=== PATIENT | female | born 1935 | race Caucasian/White ===

== ENCOUNTER 2021-12-27 02:05 | Inpatient (IN) | payer OTHER ==
[~2021-12-27] VITALS: Ht 152.4 cm; Wt 45.4 kg
[2021-12-27 02:10] VITALS: BP 117/73
--- NOTE | 2021-12-27 02:18 | NUR ---
PT BIBA 209
[2021-12-27] MEDS ORDERED: MEROPENEM 1,000 MG in NACL 0.9% 50 ML IV ONE (02:30)
[2021-12-27] MEDS ORDERED: NACL 0.9% 1,000 ML IV ONE (02:30)
[2021-12-27] MEDS ORDERED: VANCOMYCIN 1,000 MG in DEXTROSE 5% 250 ML IV ONE (02:30)
[2021-12-27 02:47] LABS: BASOPHILS % (AUTO) 0.6 % (0.0-2.0); EOSINOPHILS # (AUTO) 0.1 K/uL (0-0.4); EOSINOPHILS % (AUTO) 1.8 % (0.0-4.0); HEMATOCRIT 41.4 % (36-48); HEMOGLOBIN 13.5 g/dL (12.0-16.0); LYMPHOCYTES # (AUTO) 0.9 K/uL (2.5-16.5); MEAN CORPUSCULAR HEMOGLOBIN 30 pg (27-31); MEAN CORPUSCULAR HGB CONC 33 g/dL (33-37); MEAN CORPUSCULAR VOLUME 92.9 fL (80-94); MONOCYTES # (AUTO) 0.2 K/uL (0.8-1.0); MONOCYTES % (AUTO) 3.6 % (1.7-9.3); NEUTROPHILS # (AUTO) 5.1 K/uL (1.8-7.7); PLATELET COUNT (AUTO) 182 K/uL (140-450); RED BLOOD CELL COUNT(AUTO) 4.46 MIL/uL (4.20-5.40); RED CELL DISTRIBUTION WIDTH 19.6 % (11.6-13.7); WHITE BLOOD COUNT (AUTO) 6.4 K/uL (4.8-10.8)
--- NOTE | 2021-12-27 02:57 | NUR ---
PT CAME IN WITH SOB AND NOSE BLEED MOSTLY FROM LEFT NARE. PT IS ON 8 L NON REBREATHER SATTING AT 97 %. ALERT AND ORIENTED X4, FOLLOW COMMAND UNSTEADY GAIT DUE TO HER STROKE A YEAR AGO. SHE HAS BEEN USING WALKER IN HER SNIF.
[2021-12-27 03:01] LABS: PROTHROMBIN TIME 13.1 secs (10.8-13.4)
[2021-12-27 03:09] LABS: ALBUMIN 2.9 g/dL (3.4-5.0); ANION GAP 11.4 (8-16); ASPARTATE AMINOTRANSFERASE 17 U/L (15-37); CARBON DIOXIDE 30.5 mmol/L (21-32); CHLORIDE 106 mmol/L (98-107); GLUCOSE 144 mg/dL (74-106); POTASSIUM 3.9 mmol/L (3.5-5.1); SODIUM SERUM 144 mmol/L (136-145); TOTAL BILIRUBIN 1.1 mg/dL (0.0-1.0); UREA NITROGEN, BLOOD 25 mg/dL (7-18)
[2021-12-27] MEDS ORDERED: VANCOMYCIN 1,000 MG VIAL ONE (03:12)
[2021-12-27] MEDS ORDERED: MEROPENEM 1,000 MG VIAL IV ONE (03:13)
[2021-12-27] MEDS ORDERED: FURO-570 PO (05:24)
[2021-12-27] MEDS ORDERED: LOSA25TA32 PO (05:24)
[2021-12-27] MEDS ORDERED: ASPI-1822 PO (05:24)
[2021-12-27] MEDS ORDERED: MELA3TER PO (05:24)
[2021-12-27] MEDS ORDERED: ALBU2.5V IH (05:24)
[2021-12-27] MEDS ORDERED: ALPR0.252 PO (05:24)
[2021-12-27] MEDS ORDERED: DAPA10TA PO (05:24)
[2021-12-27] MEDS ORDERED: APIX2.5 PO (05:24)
--- NOTE | 2021-12-27 05:46 | NUR ---
PT IS RESTING. CALM AND COOPERATIVE.
--- NOTE | 2021-12-27 06:00 | NUR ---
PT 02 SAT WAS DESATING TO 70ISH, PT IS STILL ALERT AND SOB. CALLED THE DR AND HE ORDERED BIPAP.
[2021-12-27] MEDS ORDERED: MAG SULF 2000 MG/WATER PREMIX 50 ML IV ONE (06:10)
[2021-12-27] MEDS ORDERED: methylPREDNISolone SS 125 MG/2 ML VIAL IVP ONE (06:10)
--- NOTE | 2021-12-27 06:44 | NUR ---
PT IS SATING WITH 97B WITH BIPAP
--- NOTE | 2021-12-27 07:15 | NUR ---
RECEIVED REPORT FROM ELYSE STARK. PT ON BIPAP AND TOLERATING WELL @ 100%. DENIES ANY SOB OR DISCOMFORT AT THIS TIME. AAO4. CALM AND RESTING. VITALS STABLE.
--- NOTE | 2021-12-27 07:16 | NUR ---
PER ELYSE STARK, NO URINE COLLECTED. PT UNABLE TO VOID AT THIS TIME.
--- NOTE | 2021-12-27 07:50 | NUR ---
Patient will be admitted to care of DR RODRIGUEZ. Admited to TELE. Will go to room 115. Belongings list completed. Report to OLEG STARK.
--- NOTE | 2021-12-27 08:01 | NUR ---
PATIENT WAS TRANSPORTED FROM ER TO TELE. WAS GIVEN REPORT THAT PATIENT WAS PLACED ON BIPAP DUE TO HYPOXIA. PATIENT SETTINGS ARE 16/8 F16 0.9 RISE OF 3 AND 50% FIO2. PATIENT RESTING COMFORTABLY. BIPAP PLUGGED INTO RED OUTLET AND FLOWMETER.
--- NOTE | 2021-12-27 08:46 | NUR ---
PATIENT HAS BEEN SCREENED AND CATEGORIZED MODERATE NUTRITION RISK. PATIENT WILL BE SEEN WITHIN 3-5 DAYS OF ADMISSION. 12/27/21-01/01/[address]
[2021-12-27] MEDS ORDERED: POTASSIUM CHLORIDE 10 MEQ TABER PO PRN (09:00)
[2021-12-27] MEDS ORDERED: MAG SULF 2000 MG/WATER PREMIX 50 ML IV PRN (09:00)
[2021-12-27] MEDS: VANCOMYCIN PER PHARMACY MC SCH (09:00)
[2021-12-27] MEDS ORDERED: FUROSEMIDE 20 MG/2 ML VIAL IVP SCH (09:07)
[2021-12-27 12:05] VITALS: BP 106/57
--- NOTE | 2021-12-27 12:09 | NUR ---
received patient from ER today on bipap. pt aox4, VSS, afib on tele. pt has periods of incontinence - changed pt and noticed blood clots on asmita. informed Dr Jiménez. orders placed. will continue to monitor.
--- NOTE | 2021-12-27 12:13 | NUR ---
consulted dr campbell, pending transvaginal US
--- NOTE | 2021-12-27 12:15 | NUR ---
PATIENT REQUESTED TO BE TAKEN OFF OF BIPAP AND TO BE PUT ON NASAL CANNULA. PLACED PATIENT ON 6L NASAL CANNULA TO MAINTAIN SPO2 AT 90%. PLACED PATIENT ON BUBBLE HUMIDIFER. WILL CONTINUE TO MONITOR.
[2021-12-27] MEDS ORDERED: DIGOXIN 0.25 MG/ML AMP IV SCH (13:30)
[2021-12-27 14:42] LABS: BASOPHILS % (AUTO) 0.1 % (0.0-2.0); HEMATOCRIT 34.5 % (36-48); HEMOGLOBIN 11.2 g/dL (12.0-16.0); LYMPHOCYTES # (AUTO) 0.2 K/uL (2.5-16.5); LYMPHOCYTES % (AUTO) 2.9 % (20.5-51.1); MEAN CORPUSCULAR HEMOGLOBIN 30 pg (27-31); MEAN CORPUSCULAR HGB CONC 33 g/dL (33-37); MEAN CORPUSCULAR VOLUME 92.6 fL (80-94); MONOCYTES # (AUTO) 0.1 K/uL (0.8-1.0); MONOCYTES % (AUTO) 1.2 % (1.7-9.3); NEUTROPHILS # (AUTO) 6.6 K/uL (1.8-7.7); NEUTROPHILS % (AUTO) 95.8 % (42.2-75.2); PLATELET COUNT (AUTO) 145 K/uL (140-450); RED BLOOD CELL COUNT(AUTO) 3.73 MIL/uL (4.20-5.40); RED CELL DISTRIBUTION WIDTH 18.8 % (11.6-13.7); WHITE BLOOD COUNT (AUTO) 6.9 K/uL (4.8-10.8)
--- NOTE | 2021-12-27 15:37 | NUR ---
WENT TO PT ROOM TO MONITOR SPO2. ON 6L PATIENT WAS SATING 97%. TITRATED PATIENT TO 3L, THIS IS WHAT SHE IS ON AT [facility]. MONITORED PATIENT AND PATIENT MAINTAINED SATURATION AT 94% AND ABOVE. WILL CONTINUE TO MONITOR.
[2021-12-27] MEDS ORDERED: ALBUTEROL 0.083% 2.5 MG/3 ML NEBU INH PRN (16:01)
--- NOTE | 2021-12-27 16:42 | NUR ---
pt has multiple episodes of eliminating vaginal blood clots, Dr Jiménez made aware.
[2021-12-27 16:45] VITALS: BP 97/67
[2021-12-27] MEDS: MELATONIN 3 MG TAB PO SCH (17:00)
[2021-12-27] MEDS ORDERED: NON-FORMULARY ITEM (Melatonin (Melatonin) 1 TAB) PO SCH (17:00)
[2021-12-27] MEDS ORDERED: DIGOXIN 0.25 MG TAB PO SCH (18:00)
--- NOTE | 2021-12-27 18:21 | NUR ---
pt aox4, VSS, on 3LNC >92%, denies SOB, no acute distress, monitoring blood in diapers, MDs are aware, pending OBGYN consult, bed locked, alarm on, and in lowest position, safety measures maintained, IVs intact, repositioned q2h, granddaughter updated on POC, will continue to monitor. pt free from injury and stable for endorsement to PM shift.
--- NOTE | 2021-12-27 19:30 | NUR ---
RECEIVED PT FROM DAY RN FOR CONTINUITY OF CARE. PT A&O X 3,ON 3L O2 VIA NC. O2 SAT AT 95%. SKIN WARM, DRY AND INTACT. NO COMPLAINS OF PAIN. DR GARCIA AT BEDSIDE FOR PELVIC EXAM. ALL PRECAUTIONS IN PLACE. CALL LIGHT WITHIN REACH. WILL CONTINUE TO MONITOR.
[2021-12-27 20:00] VITALS: BP 97/67
[2021-12-27] MEDS: FUROSEMIDE 20 MG/2 ML VIAL IVP SCH (20:50)
--- NOTE | 2021-12-27 21:00 | NUR ---
SCHEDULED MEDICATIONS GIVEN. PT TOLERATED WELL. CALL LIGHT WITHIN REACH. WILL CONTINUE TO MONITOR.
[2021-12-28] VITALS: BP 118/58
--- NOTE | 2021-12-28 03:16 | NUR ---
PT HAS BEEN MONITORED THROUGHOUT NIGHT AND RESTING COMFORTABLY W/ NO DISTRESS NOTED
[2021-12-28 04:00] VITALS: BP 100/55
[2021-12-28] MEDS ORDERED: VANCOMYCIN 500 MG in DEXTROSE 5% 100 ML IV SCH (04:00)
--- NOTE | 2021-12-28 04:00 | NUR ---
PT IS ASLEEP, NO SOB OR DISTRESS.
[2021-12-28 07:07] LABS: BASOPHILS % (AUTO) 0.4 % (0.0-2.0); EOSINOPHILS % (AUTO) 0.1 % (0.0-4.0); HEMATOCRIT 32.7 % (36-48); HEMOGLOBIN 10.7 g/dL (12.0-16.0); LYMPHOCYTES # (AUTO) 1.1 K/uL (2.5-16.5); LYMPHOCYTES % (AUTO) 16.1 % (20.5-51.1); MEAN CORPUSCULAR HEMOGLOBIN 31 pg (27-31); MEAN CORPUSCULAR HGB CONC 33 g/dL (33-37); MEAN CORPUSCULAR VOLUME 93.1 fL (80-94); MONOCYTES # (AUTO) 0.5 K/uL (0.8-1.0); MONOCYTES % (AUTO) 6.7 % (1.7-9.3); NEUTROPHILS # (AUTO) 5.1 K/uL (1.8-7.7); NEUTROPHILS % (AUTO) 76.7 % (42.2-75.2); PLATELET COUNT (AUTO) 172 K/uL (140-450); RED BLOOD CELL COUNT(AUTO) 3.51 MIL/uL (4.20-5.40); RED CELL DISTRIBUTION WIDTH 19.3 % (11.6-13.7); WHITE BLOOD COUNT (AUTO) 6.7 K/uL (4.8-10.8)
[2021-12-28 07:08] LABS: ANION GAP 12.4 (8-16); CARBON DIOXIDE 29.1 mmol/L (21-32); CHLORIDE 106 mmol/L (98-107); CREATININE 0.9 mg/dL (0.6-1.3); GLUCOSE 99 mg/dL (74-106); POTASSIUM 4.5 mmol/L (3.5-5.1); SODIUM SERUM 143 mmol/L (136-145); UREA NITROGEN, BLOOD 40 mg/dL (7-18)
[2021-12-28 07:12] LABS: MAGNESIUM 2.2 mg/dL (1.8-2.4); PHOSPHORUS 4.4 mg/dL (2.5-4.9)
--- NOTE | 2021-12-28 07:40 | NUR ---
PT IS ON STABLE CONDITION. ALL SAFETY MEASURES ARE IN PLACE. ENDORSED TO DAY SHIFT NURSE FOR CONTINUITY OF CARE.
--- NOTE | 2021-12-28 07:40 | NUR ---
RECEIVED REPORT FROM NIGHTSHIFT NURSE AZALIA FOR CONTINUITY OF CARE. PT IN STABLE CONDITION, AND CURRENTLY AWAKE. PT A/OX4 AND BREATHING IS EVEN, REGULAR AND UNLABORED ON 4L VIA NASAL CANNULA. PT IS INCONTINENT OF THE BOWEL AND BLADDER WITH A PUREWICK TO SUCTION. SKIN IS INTACT AND PT IS ON BEDREST. PT DENIES PAIN AT THIS TIME, NO SIGNS OF DISTRESS NOTED AT THIS TIME.
--- NOTE | 2021-12-28 07:48 | NUR ---
FOUND PATIENT RESTING COMFORTABLY ON 4L. PATIENT IS SATING AT 94%. PATIENT SAID THAT HER NORMAL REGIME IS 3L AT [facility], ATTEMPTED TO HAVE HER ON 3L BUT SHE DESATED TO 85%. WILL CONTINUE TO MONITOR.
[2021-12-28 08:00] VITALS: BP 112/62
--- NOTE | 2021-12-28 08:40 | NUR ---
PT REPORTED A NOSEBLEED, ASSESSED SITE, BLEEDING STOPPED QUICKLY. PT STATED THIS HAPPENS AT TIMES DUE TO HER ALWAYS BEING ON O2 AT HOME. EDUCATED PT TO AVOID BLOWING ON NOSE OR PICKING AT NARES. HELD HEPARIN DOSE DUE TO EPISTAXIS. ASSESSED PT ON 3L AND PT DESATTED TO 88%, REPLACED TO 4L AND PT SPO2 WENT UP TO 94%.
[2021-12-28] MEDS: ALPRAZolam 0.25 MG TAB PO PRN ×2 (08:49→20:37)
[2021-12-28] MEDS: methylPREDNISolone SS 40 MG/ML VIAL IVP SCH ×2 (08:50→20:38)
[2021-12-28] MEDS: FUROSEMIDE 20 MG/2 ML VIAL IVP SCH ×2 (08:50→20:37)
[2021-12-28] MEDS ORDERED: LOSARTAN 25 MG TAB PO SCH (09:00)
[2021-12-28] MEDS: VANCOMYCIN PER PHARMACY MC SCH (09:00)
[2021-12-28] MEDS ORDERED: FUROSEMIDE 40 MG TAB PO SCH (09:00)
[2021-12-28] MEDS ORDERED: NON-FORMULARY ITEM (Dapagliflozin Propanediol (Farxiga) 10 MG) PO SCH (09:00)
[2021-12-28] MEDS ORDERED: ATOR40TA40 PO (09:56)
[2021-12-28] MEDS ORDERED: ACET-1182 PO (09:57)
--- NOTE | 2021-12-28 10:00 | NUR ---
PT VISUALLY ASSESSED, CURRENTLY SLEEPING, NO SIGNS OF PAIN OR DISTRESS NOTED AT THIS TIME.
[2021-12-28 12:00] VITALS: BP 107/63
--- NOTE | 2021-12-28 12:00 | NUR ---
PT VISUALLY ASSESSED, CURRENTLY SLEEPING, NO SIGNS OF PAIN OR DISTRESS NOTED AT THIS TIME.
[2021-12-28] MEDS ORDERED: ACETAMINOPHEN 325 MG TAB PO PRN (13:00)
[2021-12-28] MEDS ORDERED: HYDROcodone/APAP 7.5/325 MG 1 TAB PO PRN (13:00)
[2021-12-28] MEDS ORDERED: NACL 0.9% 1,000 ML IV SCH (13:00)
[2021-12-28] MEDS ORDERED: ONDANSETRON 4 MG/2 ML VIAL IVP PRN (13:00)
--- NOTE | 2021-12-28 14:00 | NUR ---
PT VISUALLY ASSESSED, CURRENTLY SLEEPING, NO SIGNS OF PAIN OR DISTRESS NOTED AT THIS TIME.
--- NOTE | 2021-12-28 14:05 | NUR ---
LATE ENTRY- IV NS DISCONTINUED AT 0750. IV VANCOMYCIN DISCONTINUED AT 0750. IV MEROPENEM DISCONTINUED AT 0750. IV MAGNESIUM SULFATE DISCONTINUED AT 0750.
[2021-12-28 14:11] LABS: CHOL/HDL RATIO 1.8 (1-4.5); FREE T4 (FREE THYROXINE) 1.09 ng/dL (0.76-1.46); THYROID STIMULATING HORMONE 1.88 uIU/mL (0.34-3.74)
--- NOTE | 2021-12-28 14:32 | NUR ---
DC PLANNING SW MET WITH PT AT BEDSIDE TO COMPLETE ASSESSMENT. PT REPORTS RECENT ADMISSION TO , THREE WEEKS AGO. PT REPORTS SHE IS RECEIVING SKILLED CARE (PT) AT THE FACILITY. PT IDENTIFIED YULIANA JOHNSON,SISTER, AND FADUMO VILLAFANA, GRANDDAUGHTER,[phone] EMERGENCY CONTACTS.PT DENIES AD IN PLACE AND ACCEPTED AD OFFERED BY SW. PT REPORTS BEING MEDICATION COMPLIANT AND REPORTS FACILITY ADMINISTERS MEDICATIONS. PT REPORTS UTILIZING FWW AND O2 AT FACILITY. PT REQUIRES ASSISTANCE WITH ADL'S WHICH FACILITY AIDS WITH. PT REPORTS RECEIVING HH IN THE PAST, HOWEVER STRUGGLED TO RECALL NAME OF AGENCY. PT REPORTS DC PLAN IS TO RETURN TO , WHEN MEDICALLY STABLE. Addendum: 12/28/21 at 1434 by Fabi ESPANA Amended: Links added.
[2021-12-28 16:00] VITALS: BP 94/54
--- NOTE | 2021-12-28 16:00 | NUR ---
PT VISUALLY ASSESSED, CURRENTLY SLEEPING, NO SIGNS OF PAIN OR DISTRESS NOTED AT THIS TIME.
[2021-12-28] MEDS ORDERED: DIGOXIN 0.25 MG TAB PO SCH ×2 (16:30)
[2021-12-28] MEDS: MELATONIN 3 MG TAB PO SCH (16:50)
[2021-12-28] MEDS: FARXIGA 10MG TABLET PO SCH (16:50)
--- NOTE | 2021-12-28 18:00 | NUR ---
PT VISUALLY ASSESSED, CURRENTLY SLEEPING, NO SIGNS OF PAIN OR DISTRESS NOTED AT THIS TIME.
--- NOTE | 2021-12-28 19:30 | NUR ---
ENDORSED PT TO NIGHTSFLFT NURSE ABDI FOR CONTINUITY OF CARE. PT IN STABLE CONDITION.
[2021-12-28 20:00] VITALS: BP 108/61
--- NOTE | 2021-12-28 20:00 | NUR ---
ASSESSMENT COMPLETED PT DENIES PAIN AT THIS TIME BREATHING UNLABORED AT THIS TIME PLAN OF CARE REVIEWED CALL LIGHT IN REACH WILL CONTINUE TO MONITOR AND ASSESS
[2021-12-28] MEDS: DOCUSATE SODIUM 100 MG GELCAP PO SCH (20:38)
[2021-12-29] VITALS: BP 105/59
--- NOTE | 2021-12-29 01:27 | NUR ---
PT RESTLESS AT THIS TIME AND ANXIOUS CHANGED PAD MULTIPLE TIMES HELPED WITH REPOSITIONING PT CONTINUES TO BE ANXIOUS AFTER ALL NEEDS MET MD PAGED FOR NEW ORDER. PT GIVEN XANAX AT START OF SHIF BUT XANAX INEFFECTIV PT REMAINS ANXIOUS AND RESTLESS
--- NOTE | 2021-12-29 01:42 | NUR ---
PT ENDORSES SHE HASGENERAL BODY PAIN 08/15 NORCO GIVEN ORDERED WILL CONTINUE TO MONITOR AND ASSESS TURNED AND REPOSTIONED
[2021-12-29 04:00] VITALS: BP 138/70
[2021-12-29 08:00] VITALS: BP 115/64
[2021-12-29 08:26] LABS: ANION GAP 12.1 (8-16); CARBON DIOXIDE 28.1 mmol/L (21-32); CHLORIDE 106 mmol/L (98-107); CREATININE 0.8 mg/dL (0.6-1.3); GLUCOSE 105 mg/dL (74-106); POTASSIUM 4.2 mmol/L (3.5-5.1); SODIUM SERUM 142 mmol/L (136-145); UREA NITROGEN, BLOOD 41 mg/dL (7-18)
[2021-12-29 08:37] LABS: MAGNESIUM 2.3 mg/dL (1.8-2.4); PHOSPHORUS 4.7 mg/dL (2.5-4.9)
[2021-12-29 08:38] LABS: BASOPHILS % (AUTO) 0.1 % (0.0-2.0); HEMATOCRIT 32.1 % (36-48); HEMOGLOBIN 10.5 g/dL (12.0-16.0); LYMPHOCYTES # (AUTO) 0.8 K/uL (2.5-16.5); LYMPHOCYTES % (AUTO) 14.5 % (20.5-51.1); MEAN CORPUSCULAR HEMOGLOBIN 31 pg (27-31); MEAN CORPUSCULAR HGB CONC 33 g/dL (33-37); MEAN CORPUSCULAR VOLUME 94.7 fL (80-94); MONOCYTES # (AUTO) 0.1 K/uL (0.8-1.0); MONOCYTES % (AUTO) 2.4 % (1.7-9.3); NEUTROPHILS # (AUTO) 4.3 K/uL (1.8-7.7); PLATELET COUNT (AUTO) 166 K/uL (140-450); RED BLOOD CELL COUNT(AUTO) 3.39 MIL/uL (4.20-5.40); RED CELL DISTRIBUTION WIDTH 18.7 % (11.6-13.7); WHITE BLOOD COUNT (AUTO) 5.2 K/uL (4.8-10.8)
[2021-12-29] MEDS: ATORVASTATIN 20 MG TAB PO SCH (09:00)
[2021-12-29] MEDS ORDERED: NON-FORMULARY ITEM (Atorvastatin Calcium 1 TAB) PO SCH (09:00)
[2021-12-29] MEDS: DOCUSATE SODIUM 100 MG GELCAP PO SCH ×2 (09:00→20:21)
[2021-12-29] MEDS: VANCOMYCIN PER PHARMACY MC SCH (09:00)
[2021-12-29] MEDS: FUROSEMIDE 20 MG/2 ML VIAL IVP SCH ×2 (09:00→20:12)
[2021-12-29] MEDS ORDERED: COMMUNICATION ORDER MC SCH (09:00)
[2021-12-29] MEDS: FARXIGA 10MG TABLET PO SCH (09:00)
[2021-12-29] MEDS: PANTOPRAZOLE 40 MG INJ VIAL IVP SCH (10:08)
[2021-12-29] MEDS: methylPREDNISolone SS 40 MG/ML VIAL IVP SCH ×2 (10:08→20:21)
[2021-12-29] MEDS: VANCOMYCIN 750 MG in DEXTROSE 5% 250 ML IV SCH (11:55)
[2021-12-29 12:00] VITALS: BP 96/55
[2021-12-29 16:00] VITALS: BP 101/63
[2021-12-29] MEDS: FERROUS SULFATE 325 MG TABEC PO SCH (18:02)
[2021-12-29] MEDS: MELATONIN 3 MG TAB PO SCH (18:03)
--- NOTE | 2021-12-29 19:58 | NUR ---
GET THE REPORT FROM MORNING NURSE STEVIE , PATIENT IS LYING ON BED, PATIENT IS ALERT ORIENTED X4, ALL FALL PRECAUTION MEASURE ARE IN PLACE, CALL LIGHT IS WITHIN THE REACH, WILL CONTINUE TO MONITOR PATIENT.
[2021-12-29 20:00] VITALS: BP 98/55
--- NOTE | 2021-12-29 20:21 | NUR ---
PATIENT IS LYING ON BED, NO ANY COMPLAIN OF PAIN OR SHORTNESS OF BREATH AT THIS TIME, VITAL SIGN IS WITHIN THE NORMAL RANGE, HOLD THE LASIX 20MG IV DUE TO LOW BLOOD PRESSURE : 98/55, HR:60/MIN ,ALL OTHER SCHEDULE MEDICATION IS GIVEN PER DOCTOR ORDER, PATIENT IS RECEIVING OXYGEN 4 LITER VIA NASAL CANNULA ,CALL LIGHT IS WITHIN THE REACH, WILL CONTINUE TO MONITOR PATIENT.
[2021-12-30] VITALS: BP 108/66
--- NOTE | 2021-12-30 00:20 | NUR ---
PATIENT IS LYING ON BED, NO ANY COMPLAIN OF PAIN OR SHORTNESS OF BREATH AT THIS TIME, VITAL SIGN IS WITHIN THE NORMAL RANGE, REPOSITION THE PATIENT, CALL LIGHT IS WITHIN THE REACH, WILL CONTINUE TO MONITOR PATIENT.
[2021-12-30 04:00] VITALS: BP 109/69
--- NOTE | 2021-12-30 04:17 | NUR ---
NO ANY COMPLAIN OF PAIN OR SHORTNESS OF BREATH AT THIS TIME, VITAL SIGN IS WITHIN THE NORMAL RANGE, PATIENT IS LYING ON BED, HELP TO CHANGE AND REPOSITION THE PATIENT, CALL LIGHT IS WITHIN THE REACH, WILL CONTINUE TO MONITOR PATIENT.
--- NOTE | 2021-12-30 07:09 | NUR ---
GAVE THE REPORT TO THE MORNING NURSE SHADE FOR CONTINUOS OF CARE, PATIENT IS STABLE.
--- NOTE | 2021-12-30 07:10 | NUR ---
RECEIVED REPORT ROM WOOD HEEL BACK LINER NURSE AARON FOR CONTINUITY OF CARE. NO SIGNS OF DISTRESS OR LABORED BREATHING. PT SI A&OX4, IS HAVING AFIB ON THE TELE MONITOR, IS ON 4L NC STATING AT 99% AND SKIN IS INTACT. PT IS ON BED REST AND HAS A NAGI-WICK HOOKED TO SUCTION TO COLLECT URINE. PT HAS A 20G IV IN HER RAC INTACT, SALINE LOCKED AND 22G L FOREARM INTACT, SALINE LOCKED. PT DOES HAVE SOME RECTAL BLEEDING AND GI HAS SEEN HER. BED IN LOW POSITION, TWO SIDE RAILS UP, CALL LIGHT WITHIN REACH AND ALL SAFETY MEASURES MEET AT THIS TIME. WILL CONTINUE TO MONITOR.
[2021-12-30 07:23] LABS: BASOPHILS % (AUTO) 0.1 % (0.0-2.0); HEMATOCRIT 34.7 % (36-48); HEMOGLOBIN 11.5 g/dL (12.0-16.0); LYMPHOCYTES # (AUTO) 0.7 K/uL (2.5-16.5); MEAN CORPUSCULAR HEMOGLOBIN 31 pg (27-31); MEAN CORPUSCULAR HGB CONC 33 g/dL (33-37); MEAN CORPUSCULAR VOLUME 93.2 fL (80-94); MONOCYTES # (AUTO) 0.3 K/uL (0.8-1.0); MONOCYTES % (AUTO) 5.7 % (1.7-9.3); NEUTROPHILS # (AUTO) 4.5 K/uL (1.8-7.7); NEUTROPHILS % (AUTO) 81.2 % (42.2-75.2); PLATELET COUNT (AUTO) 191 K/uL (140-450); RED BLOOD CELL COUNT(AUTO) 3.73 MIL/uL (4.20-5.40); WHITE BLOOD COUNT (AUTO) 5.5 K/uL (4.8-10.8)
[2021-12-30 07:50] LABS: ANION GAP 5.4 (8-16); CHLORIDE 104 mmol/L (98-107); CREATININE 0.7 mg/dL (0.6-1.3); GLUCOSE 119 mg/dL (74-106); POTASSIUM 4.4 mmol/L (3.5-5.1); SODIUM SERUM 137 mmol/L (136-145); UREA NITROGEN, BLOOD 37 mg/dL (7-18)
[2021-12-30 08:00] VITALS: BP 117/72
[2021-12-30 08:05] LABS: MAGNESIUM 2.3 mg/dL (1.8-2.4); PHOSPHORUS 3.9 mg/dL (2.5-4.9)
[2021-12-30] MEDS ORDERED: LACTULOSE 20 GM/30 ML UDC PO SCH (09:00)
[2021-12-30] MEDS: FERROUS SULFATE 325 MG TABEC PO SCH (09:03)
[2021-12-30] MEDS: DOCUSATE SODIUM 100 MG GELCAP PO SCH (09:04)
[2021-12-30] MEDS: PANTOPRAZOLE 40 MG INJ VIAL IVP SCH (09:04)
[2021-12-30] MEDS: FUROSEMIDE 20 MG/2 ML VIAL IVP SCH (09:04)
[2021-12-30] MEDS: methylPREDNISolone SS 40 MG/ML VIAL IVP SCH (09:04)
[2021-12-30] MEDS: ATORVASTATIN 20 MG TAB PO SCH (09:05)
[2021-12-30] MEDS: FARXIGA 10MG TABLET PO SCH (09:06)
[2021-12-30] MEDS: VANCOMYCIN PER PHARMACY MC SCH (09:06)
[2021-12-30] MEDS ORDERED: APIX2.5 PO (10:22)
[2021-12-30] MEDS ORDERED: ASPI-1822 PO (10:22)
[2021-12-30] MEDS: VANCOMYCIN 750 MG in DEXTROSE 5% 250 ML IV SCH (11:11)
[2021-12-30 12:00] VITALS: BP 93/58
[2021-12-30 13:29] VITALS: BP 93/58
== END 2021-12-30 14:45 | DRG 193 ==
LOC: MED 02:05 → MTU 04:33
PROC: 5A09357 Assistance with Respiratory Ventilation, Less than 24 Consecutive Hours, Continuous Positive Airway Pressure (ICD-10-PCS; principal; 2021-12-27)
DX: J18.9 Pneumonia, unspecified organism (principal); I50.43 Acute on chronic combined systolic (congestive) and diastolic (congestive) heart failure; J96.21 Acute and chronic respiratory failure with hypoxia; I42.9 Cardiomyopathy, unspecified; N39.0 Urinary tract infection, site not specified; E44.0 Moderate protein-calorie malnutrition; K62.5 Hemorrhage of anus and rectum; I69.354 Hemiplegia and hemiparesis following cerebral infarction affecting left non-dominant side; Z68.1 Body mass index [BMI] 19.9 or less, adult; Z20.822 Contact with and (suspected) exposure to COVID-19; J84.10 Pulmonary fibrosis, unspecified; I48.91 Unspecified atrial fibrillation; I11.0 Hypertensive heart disease with heart failure; F17.210 Nicotine dependence, cigarettes, uncomplicated; R04.0 Epistaxis; J43.9 Emphysema, unspecified; Z79.01 Long term (current) use of anticoagulants; Z90.710 Acquired absence of both cervix and uterus
CPT/HCPCS: 36415; 36600; 71045; 71275; 76856; 80048; 80053; 80202; 82150; 82803; 83036; 83605; 83690; 83735; 83880; 84100; 84439; 84443; 85025; 85610; 85730; 87040; 87081; 93005; 94660; 96361; 96365; 96368; 96375; 99291; C9113; J1160; J1644; J1940; J2185; J2920; J2930; J3370; J3475; J7030; J7060; Q0092; Q9967

== ENCOUNTER 2022-01-08 16:15 | Inpatient (IN) | payer OTHER ==
[~2022-01-08] VITALS: Ht 160 cm; Wt 41.3 kg
[2022-01-08] MEDS: NACL 0.9% 1,000 ML IV SCH (07:44)
[~2022-01-08 16:15] MED LIST: ACET-1182 PO; ALBU2.5V IH; ALPR0.252 PO; APIX2.5 PO; ASPI-1822 PO; ATOR40TA40 PO; DAPA10TA PO; FURO-570 PO; LOSA25TA32 PO; MELA3TER PO
[2022-01-08 16:28] VITALS: BP 87/43
[2022-01-08] MEDS ORDERED: NACL 0.9% 500 ML IV ONE (16:35)
[2022-01-08 16:46] LABS: BASOPHILS # (AUTO) 0.1 K/uL (0.00-0.22); BASOPHILS % (AUTO) 0.5 % (0.0-2.0); EOSINOPHILS % (AUTO) 0.1 % (0.0-4.0); HEMATOCRIT 37.1 % (36-48); HEMOGLOBIN 12.2 g/dL (12.0-16.0); LYMPHOCYTES # (AUTO) 0.5 K/uL (2.5-16.5); LYMPHOCYTES % (AUTO) 3.6 % (20.5-51.1); MEAN CORPUSCULAR HEMOGLOBIN 31 pg (27-31); MEAN CORPUSCULAR HGB CONC 33 g/dL (33-37); MEAN CORPUSCULAR VOLUME 93.9 fL (80-94); MONOCYTES # (AUTO) 0.6 K/uL (0.8-1.0); MONOCYTES % (AUTO) 4.1 % (1.7-9.3); NEUTROPHILS # (AUTO) 12.4 K/uL (1.8-7.7); NEUTROPHILS % (AUTO) 91.7 % (42.2-75.2); PLATELET COUNT (AUTO) 212 K/uL (140-450); RED BLOOD CELL COUNT(AUTO) 3.95 MIL/uL (4.20-5.40); RED CELL DISTRIBUTION WIDTH 19.4 % (11.6-13.7); WHITE BLOOD COUNT (AUTO) 13.5 K/uL (4.8-10.8)
[2022-01-08 18:38] LABS: POTASSIUM 3.8 mmol/L (3.5-5.1); SODIUM SERUM 139 mmol/L (136-145)
[2022-01-08 18:39] LABS: ANION GAP 11.8 (8-16); CHLORIDE 101 mmol/L (98-107); TOTAL BILIRUBIN 1.7 mg/dL (0.0-1.0)
[2022-01-08 18:40] LABS: CREATININE 0.9 mg/dL (0.6-1.3); GLUCOSE 147 mg/dL (74-106); UREA NITROGEN, BLOOD 23 mg/dL (7-18)
[2022-01-08 18:41] LABS: ALBUMIN 2.9 g/dL (3.4-5.0); ASPARTATE AMINOTRANSFERASE 33 U/L (15-37)
[2022-01-08] MEDS ORDERED: AZITHROMYCIN 500 MG in DEXTROSE 5% 250 ML IV ONE (18:55)
--- NOTE | 2022-01-08 19:26 | NUR ---
PT SLEEPING, NO AC DISTRESS, DENIES ANY PAIN, O2 SAT 88-90% 2 L/M VIA NC, SR UP TIMES 2, DENIES ANY PAIN
--- NOTE | 2022-01-08 19:27 | NUR ---
REPORT TO STEPHANIE WASH DRILLER HELPER NURSE
--- NOTE | 2022-01-08 20:00 | NUR ---
resting quietly, assisted with repositioning
--- NOTE | 2022-01-09 02:00 | NUR ---
AWAKE, ASSISTED WITYH REPOSITIONING, WARM BLANKET AND SOCKS GIVEN
--- NOTE | 2022-01-09 06:00 | NUR ---
RESTING COMFORTABLY AT PRESENT. IN NAD
--- NOTE | 2022-01-09 07:15 | NUR ---
REPORT RECEIVED FROM STEPHANIE STARK, RECEIVED PT IN BED EYES CLOSED AND RESPIRATIONS EVEN AND UNLABORED, NO IV RUNNING. ON NC 6LPM SATTING AT 96%
[2022-01-09] MEDS ORDERED: AZITHROMYCIN 500 MG INJ VIAL IV ONE (08:44)
[2022-01-09] MEDS: NACL 0.9% 1,000 ML IV SCH ×2 (08:45→17:20)
[2022-01-09] MEDS ORDERED: DAPA10TA PO (09:11)
--- NOTE | 2022-01-09 09:30 | NUR ---
Patient will be admitted to care of DR HOWE. Admited to TELEMETRY. Will go to room 121B. Belongings list completed. Report to KLEVER STARK.
[2022-01-09 10:14] VITALS: BP 101/64
--- NOTE | 2022-01-09 10:32 | NUR ---
PATIENT HAS BEEN SCREENED AND CATEGORIZED HIGH NUTRITION RISK. PATIENT WILL BE SEEN WITHIN 1-2 DAYS OF ADMISSION. 01/08/22-01/10/[address]
[2022-01-09] MEDS: CHLORHEXADINE GLUC 2% CLOTH TP SCH (13:35)
[2022-01-09 15:12] LABS: APPEARANCE,URINE SL CLOUDY (CLEAR); BILIRUBIN,URINE NEGATIVE (NEGATIVE); BLOOD, URINE 3+ (NEGATIVE); COLOR,URINE YELLOW (YELLOW); LEUKOCYTE ESTERASE ,URINE 2+ (NEGATIVE); NITRITE, URINE NEGATIVE (NEGATIVE); UGLUCOSE 3+ (NEGATIVE)
[2022-01-09 16:00] VITALS: BP 101/64
[2022-01-09 16:06] LABS: RBC,URINE TOO NUMEROUS TO COUN /HPF (0-5); WBC,URINE TOO MANY TO COUNT /HPF (0-5)
[2022-01-09 16:07] LABS: TRICHOMONAS,URINE None Seen /HPF (None Seen); YEAST,URINE None Seen /HPF (None Seen)
[2022-01-09] MEDS ORDERED: INSULIN LISPRO 100 UNITS/ML VIAL SUBQ ONE (17:10)
[2022-01-09] MEDS ORDERED: FUROSEMIDE 40 MG TAB PO ONE (17:10)
[2022-01-09] MEDS ORDERED: DEXTROSE 50% 50 ML SYR IVP PRN (17:20)
[2022-01-09] MEDS ORDERED: ALPRAZolam 0.25 MG TAB ONE (17:34)
[2022-01-09] MEDS ORDERED: LOSARTAN 25 MG TAB ONE (17:34)
[2022-01-09 18:59] LABS: BASOPHILS % (AUTO) 0.4 % (0.0-2.0); EOSINOPHILS # (AUTO) 0.1 K/uL (0-0.4); EOSINOPHILS % (AUTO) 0.5 % (0.0-4.0); HEMATOCRIT 35.6 % (36-48); HEMOGLOBIN 11.5 g/dL (12.0-16.0); LYMPHOCYTES # (AUTO) 0.6 K/uL (2.5-16.5); LYMPHOCYTES % (AUTO) 5.3 % (20.5-51.1); MEAN CORPUSCULAR HEMOGLOBIN 30 pg (27-31); MEAN CORPUSCULAR HGB CONC 32 g/dL (33-37); MEAN CORPUSCULAR VOLUME 93.9 fL (80-94); MONOCYTES # (AUTO) 0.6 K/uL (0.8-1.0); MONOCYTES % (AUTO) 4.8 % (1.7-9.3); NEUTROPHILS # (AUTO) 10.4 K/uL (1.8-7.7); PLATELET COUNT (AUTO) 184 K/uL (140-450); RED BLOOD CELL COUNT(AUTO) 3.79 MIL/uL (4.20-5.40); RED CELL DISTRIBUTION WIDTH 19.7 % (11.6-13.7); WHITE BLOOD COUNT (AUTO) 11.7 K/uL (4.8-10.8)
[2022-01-09 19:09] LABS: ANION GAP 12.2 (8-16); CARBON DIOXIDE 28.2 mmol/L (21-32); CHLORIDE 106 mmol/L (98-107); CREATININE 0.6 mg/dL (0.6-1.3); GLUCOSE 106 mg/dL (74-106); POTASSIUM 3.4 mmol/L (3.5-5.1); SODIUM SERUM 143 mmol/L (136-145); UREA NITROGEN, BLOOD 20 mg/dL (7-18)
--- NOTE | 2022-01-09 19:30 | NUR ---
RECEIVED REPORT FROM DAY SHIFT NURSE KLEVER FOR CONTINUITY OF CARE. PATIENT IS A&O X3. PATIENT IS ON NC 5L, BREATHING IS NORMAL WITH SYMMETRICAL RISE AND FALL OF CHEST. PATIENT'S IV IS A 20G LAC; RUNNING NS AT 100. PATIENT IS SLEEPING, LYING IN SEMI-FOWLERS POSITION. BED IS IN LOWEST POSITION, WHEELS LOCKED, CALL LIGHT IN PLACE. WILL CONTINUE TO OBSERVE PATIENT.
[2022-01-09 20:00] VITALS: BP 62/43
[2022-01-09] MEDS ORDERED: NACL 0.9% 500 ML IV ONE (20:15)
--- NOTE | 2022-01-09 20:16 | NUR ---
01/09/22 RD INITIAL ASSESSMENT COMPLETED. PLEASE REFER TO NUTRITION ASSESSMENT UNDER CARE ACTIVITY FOR ESTIMATED NUTRITIONAL NEEDS. 1.CONTINUE CARDIAC DIET TOLERATED 2.RECOMMEND ENSURE BID TO OPTIMIZE NUTRITIONAL NEEDS 3.MONITOR PO INTAKE AND WEIGHT 4.RD TO FOLLOW-UP 2-3 DAYS, HIGH RISK KARLY CROWLEY RD
--- NOTE | 2022-01-09 20:30 | NUR ---
OBTAINED PATIENT'S VITALS; VITALS WERE: BP 62/43, HR 114, O2 88, RR 18, TEMP 96.1. PLACED PATIENT ON O2 MASK AND 10L; O2 WENT UP TO 94%. NOTIFIED EMPLOYMENT APPEALS EXAMINER PHYSICIAN (DR. HOWE) OF BP AND O2. DR HOWE ORDERED MANUAL BP TO BE DONE. OBTAINED MANUAL BP CUFF FROM ICU; ATTEMPTED TO OBTAIN MANUAL READING WITH NURSE MJ; WAS UNABLE TO GET A READING ON PATIENT. NOTIFIED PHYSICIAN; PHYSICIAN ORDERED NS 500ML BOLUS; PUT IN ORDER, NOTIFIED PHARMACY AND ADMINISTERED BOLUS. WILL CONTINUE TO OBSERVE PATIENT.
[2022-01-09] MEDS ORDERED: ATORVASTATIN 20 MG TAB PO SCH (21:00)
--- NOTE | 2022-01-09 21:40 | NUR ---
FOUND PATIENT ON 10L SIMPLE MASK. SATING 95-96%. CHANGED PATIENT TO BUBBLE NASAL CANNULA 6L. PATIENT IS NOW SATING 91-92%. BREATH SOUNDS CLEAR DIMINISHED. NO RESPIRATORY DISTRESS NOTED. WILL CONTINUE TO MONITOR.
--- NOTE | 2022-01-09 21:45 | NUR ---
PATIENT'S BP IS 87/41. PATIENT IS NOW RUNNING NS AT 100. PATIENT STATES SHE FEELS FINE, JUST TIRED. PATIENT'S BREATHING IS NORMAL WITH SYMMETRICAL RISE AND FALL OF CHEST. WILL CONTINUE TO OBSERVE PATIENT.
[2022-01-09] MEDS: MELATONIN 3 MG TAB PO SCH (21:50)
[2022-01-09] MEDS: BLOOD GLUCOSE MONITORING 1 DEV DEV FS SCH (22:30)
--- NOTE | 2022-01-09 22:45 | NUR ---
2100 MEDICATIONS WERE ADMINISTERED TO PATIENT. PATIENT TOLERATED MEDICATIONS WELL. BS WAS 99, NO COVERAGE WAS NEEDED. PATIENT WAS ABLE TO TAKE MEDICATIONS WITHOUT ANY DIFFICULTY SWALLOWING. WILL CONTINUE TO OBSERVE PATIENT.
[2022-01-10] VITALS: BP 64/38
[2022-01-10] MEDS: MIDODRINE 5 MG TAB PO SCH ×4 (00:41→18:32)
--- NOTE | 2022-01-10 00:45 | NUR ---
OBTAINED PATIENT'S 0000 VITALS. VITALS WERE: BP 64/38, HR 111, O2 97%, RR 18. MESSAGED DR. HOWE ABOUT PATIENT'S BP DECREASE AND REQUESTED MIDODRINE FOR PATIENT. DR. HOWE MESSAGED BACK WITH AN ORDER FOR MIDODRINE 10MG TID. PUT ORDER IN FOR PATIENT. PHARMACY AUTHORIZED ORDER, AND MIDODRINE WAS ADMINISTERED TO PATIENT. PATIENT TOLERATED WELL. BREATHING IS NORMAL WITH SYMMETRICAL RISE AND FALL OF CHEST. WILL CONTINUE TO OBSERVE PATIENT.
--- NOTE | 2022-01-10 02:30 | NUR ---
LOOKED IN ON PATIENT. PATIENT WAS SLEEPING, LYING IN SEMI-FOWLERS POSITION. IV WAS RUNNING NS 100. BREATHING WAS NORMAL WITH SYMMETRICAL RISE AND FALL OF CHEST. WILL CONTINUE TO OBSERVE PATIENT.
[2022-01-10] MEDS: NACL 0.9% 1,000 ML IV SCH ×3 (03:00→23:00)
[2022-01-10 04:00] VITALS: BP 70/54
--- NOTE | 2022-01-10 05:00 | NUR ---
OBTAINED PATIENT'S 0400 VITALS. VITALS WERE: BP 70/54, HR 96, O2 99, RR 18, TEMP 95.6. OBTAINED NEW NS BAG FOR PATIENT. NS IS RUNNING AT 100 ML. PATIENT WAS AWAKE DURING NS CHANGE AND ASKED ABOUT THE CORDS THAT WERE ATTACHED TO HER. I TOLD HER THAT THEY WERE MONITORING HER VITALS AND THE ONE IN HER LEFT ARM WAS HER IV. SHE SAID OKAY, I DIDN'T THINK THEY WERE ATTACHED. I ASSURED HER THEY WERE. PATIENT'S BREATHING IS NORMAL WITH SYMMETRICAL RISE AND FALL OF CHEST. WILL CONTINUE TO OBSERVE PATIENT.
[2022-01-10] MEDS: BLOOD GLUCOSE MONITORING 1 DEV DEV FS SCH ×4 (07:05→21:02)
--- NOTE | 2022-01-10 07:15 | NUR ---
OBTAINED BS FROM PATIENT. BS WAS 96, NO COVERAGE NEEDED. ADMINISTERED MIDODRINE TO PATIENT. PATIENT TOLERATED WELL. WILL ENDORSE CARE TO DAY SHIFT NURSE.
--- NOTE | 2022-01-10 07:30 | NUR ---
RECEIVED PT CARE AND REPORT FROM SURESH STARK. PT IS RESTING IN BED SEMI-FOWLERS, A&OX4, APPEARS CALM. PT REQUESTING SPECIFIC BREAKFAST. WILL CALL KITCHEN. NO VISIBLE S/S OF DISTRESS OR DISCOMFORT. DENIES ANY PAIN OR SOB. CALL LIGHT IS WITHIN REACH, ALL NEEDS MET AT THIS TIME.
--- NOTE | 2022-01-10 07:30 | NUR ---
ENDORSED TO DAY SHIFT NURSE IAN FOR CONTINUITY OF CARE. PATIENT IS STABLE.
[2022-01-10 08:00] VITALS: BP 117/70
[2022-01-10] MEDS ORDERED: LOSARTAN 25 MG TAB PO SCH (09:00)
[2022-01-10] MEDS: ALPRAZolam 0.25 MG TAB PO PRN (09:21)
[2022-01-10 12:00] VITALS: BP 112/68
[2022-01-10] MEDS: PIPERACILLIN/TAZOBACTAM 3.375 GM in DEXTROSE 5% 50 ML IV SCH ×3 (12:20→23:59)
[2022-01-10] MEDS: CHLORHEXADINE GLUC 2% CLOTH TP SCH (12:40)
--- NOTE | 2022-01-10 13:02 | NUR ---
TEXTED DR.. ESPINOZA TO REPORT TROPONIN LEVEL OF 118. REPORTED MOST RECENT VITAL SIGNS.
[2022-01-10 16:00] VITALS: BP 116/72
--- NOTE | 2022-01-10 16:40 | NUR ---
DC PLANNING MET WITH PT AT BEDSIDE TO COMPLETE ASSESSMENT. PT REPORTS NO CHANGES SINCE LAST ADMISSION ON DEC 27. SW MET WITH PT AT BEDSIDE TO GATHER COLLATERAL INFORMATION. PT REPORTS RECENT ADMISSION TO , "ABOUT ONE MONTH AGO" . PT REPORTS SHE IS RECEIVING SKILLED CARE (PT) AT THE . PT IDENTIFIED YULIANA JOHNSON,SISTER, AND FADUMO VILLAFANA, GRANDDAUGHTER,[phone] EMERGENCY CONTACTS.PT DENIES AD IN PLACE AND DECLINED AD OFFERED BY SW. PT REPORTS BEING MEDICATION COMPLIANT AND REPORTS FACILITY ADMINISTERS MEDICATIONS, NEEDED. PT REPORTS UTILIZING FWW AND O2 AT FACILITY. PT REQUIRES ASSISTANCE WITH ADL'S PT REPORTS RECEIVING HH IN THE PAST, HOWEVER STRUGGLED TO RECALL NAME OF AGENCY. PT REPORTS DC PLAN IS TO RETURN TO , WHEN MEDICALLY STABLE.
[2022-01-10] MEDS ORDERED: POTASSIUM CHLORIDE 10 MEQ TABER PO SCH (17:00)
[2022-01-10] MEDS: DIGOXIN 0.25 MG TAB PO SCH (18:32)
--- NOTE | 2022-01-10 18:56 | NUR ---
PT IS RESTING IN BED HIGH FOWLERS, EATING DINNER, APPEARS CALM, A&OX3. NO VISIBLE S/S OF DISTRESS OR DISCOMFORT. DENIES ANY PAIN OR SOB. CALL LIGHT IS WITHIN REACH, ALL NEEDS MET AT THIS TIME. WILL ENDORSE TO NOC SHIFT.
[2022-01-10 20:00] VITALS: BP 95/44
[2022-01-10] MEDS: MELATONIN 3 MG TAB PO SCH (21:54)
[2022-01-10] MEDS: FUROSEMIDE 20 MG/2 ML VIAL IVP SCH (21:54)
[2022-01-11] VITALS (7 sets, daily range): BP systolic 80–115; BP diastolic 40–81
[2022-01-11] MEDS: PIPERACILLIN/TAZOBACTAM 3.375 GM in DEXTROSE 5% 50 ML IV SCH ×3 (06:51→18:20)
[2022-01-11] MEDS: BLOOD GLUCOSE MONITORING 1 DEV DEV FS SCH ×4 (07:30→21:10)
--- NOTE | 2022-01-11 07:30 | NUR ---
Received pt alert and oriented x3. On O2 therapy. A.fib on tele monitor. Abd with active bowel sounds. Johnson catheter intact and draining to gravity. No c/o pain. Safety precautions in place.
[2022-01-11] MEDS: MIDODRINE 5 MG TAB PO SCH ×3 (07:56→18:27)
[2022-01-11 08:45] LABS: BASOPHILS # (AUTO) 0.1 K/uL (0.00-0.22); BASOPHILS % (AUTO) 0.7 % (0.0-2.0); EOSINOPHILS # (AUTO) 0.1 K/uL (0-0.4); EOSINOPHILS % (AUTO) 0.7 % (0.0-4.0); HEMATOCRIT 40.1 % (36-48); HEMOGLOBIN 12.9 g/dL (12.0-16.0); LYMPHOCYTES # (AUTO) 0.9 K/uL (2.5-16.5); MEAN CORPUSCULAR HEMOGLOBIN 30 pg (27-31); MEAN CORPUSCULAR HGB CONC 32 g/dL (33-37); MEAN CORPUSCULAR VOLUME 93.8 fL (80-94); MONOCYTES # (AUTO) 0.4 K/uL (0.8-1.0); MONOCYTES % (AUTO) 3.7 % (1.7-9.3); NEUTROPHILS # (AUTO) 9.4 K/uL (1.8-7.7); NEUTROPHILS % (AUTO) 86.9 % (42.2-75.2); PLATELET COUNT (AUTO) 182 K/uL (140-450); RED BLOOD CELL COUNT(AUTO) 4.27 MIL/uL (4.20-5.40); RED CELL DISTRIBUTION WIDTH 19.7 % (11.6-13.7); WHITE BLOOD COUNT (AUTO) 10.8 K/uL (4.8-10.8)
[2022-01-11] MEDS: DIGOXIN 0.25 MG TAB PO SCH (08:57)
[2022-01-11] MEDS: NACL 0.9% 1,000 ML IV SCH ×2 (09:00→20:14)
[2022-01-11 09:01] LABS: ANION GAP 12.6 (8-16); CARBON DIOXIDE 26.6 mmol/L (21-32); CHLORIDE 108 mmol/L (98-107); CREATININE 0.8 mg/dL (0.6-1.3); GLUCOSE 97 mg/dL (74-106); POTASSIUM 4.2 mmol/L (3.5-5.1); SODIUM SERUM 143 mmol/L (136-145); UREA NITROGEN, BLOOD 20 mg/dL (7-18)
[2022-01-11] MEDS: ALPRAZolam 0.25 MG TAB PO PRN (09:02)
--- NOTE | 2022-01-11 10:23 | NUR ---
ON OR ABOUT THIS TIME MAINTENANCE TECH CALLED TO BEDSIDE TO ASSESS WOB; PATIENT PRESENTING WITH INCREASED SOB AT 36 BPM; SUPPLEMENTAL OXYGEN AT 50% VIA VENTI MASK BREATH SOUNDS RALES WITH INSPIRATORY WHEEZE BILATERAL REVIEWED DR. HEVER FANG CRITICAL CARE PLAN DATED 01/10/2022 "INHALED BRONCHODILATORS" MAINTENANCE TECH TO ORDER NOTED
[2022-01-11] MEDS ORDERED: ALBUTEROL SULFATE/IPRATROPIU 3 ML SOL IH PRN (10:30)
--- NOTE | 2022-01-11 10:50 | NUR ---
LOC AWAKE AND ALERT VERBALLY RESPONSIVE TO SUSPENDER MAKER VERBAL COMMANDS SATURATION 78% ON SUPPLEMETAL OXYGEN AT 50% VIA VENTI MASK TACHYPNEIC AT 36 BPM RALES AND WHEEZE BILATERAL HHN PRN THERAY GIVEN AT THIS TIME NOTED PATIENT GOOD CANDIDATE FOR A HIGH FLOW NASAL CANNULA
--- NOTE | 2022-01-11 11:07 | NUR ---
POST HHN THERAPY PLACED ON SUPPLEMENTAL OXYGEN AT 10 LPM VIA CURAPLEX/BUBBLE HUMIDIFIER SATURATION 90%
--- NOTE | 2022-01-11 11:30 | NUR ---
PLACED ON A VAPOTHERM HIGH FLOW NASAL CANNULA NOTED; KATIA/RN TO ADMINISTER LASIX ORDERED
[2022-01-11] MEDS: FUROSEMIDE 20 MG/2 ML VIAL IVP SCH ×2 (11:35→21:00)
[2022-01-11] MEDS: CHLORHEXADINE GLUC 2% CLOTH TP SCH (12:08)
--- NOTE | 2022-01-11 13:00 | NUR ---
PICC LINE NURSE AT BEDSIDE. PICC LINE PLACED ON RIGHT UPPER ARM.
--- NOTE | 2022-01-11 13:11 | NUR ---
CXR DONE AT BEDSIDE. PER PICC LINE NURSE, OKAY TO USE PICC LINE.
[2022-01-11] MEDS: ALBUTEROL SULFATE/IPRATROPIU 3 ML SOL IH SCH ×2 (14:20→21:40)
--- NOTE | 2022-01-11 14:20 | NUR ---
NO EVIDENCE OF RALES BILATERAL POST HHN THERAPY PLACED ON SUPPLEMENTAL OXYGEN AT 6 LPM VIA CURAPLEX NC/BUBBLE HUMIDIFIER
[2022-01-11] MEDS: methylPREDNISolone SS 40 MG/ML VIAL IVP SCH ×2 (14:40→21:12)
--- NOTE | 2022-01-11 18:19 | NUR ---
PHYSICAL THERAPIST AT BEDSIDE.
--- NOTE | 2022-01-11 19:42 | NUR ---
ENDORSED TO FORMING OPERATOR NURSE LAURYN FOR CONTINUITY OF CARE.
[2022-01-11] MEDS: MELATONIN 3 MG TAB PO SCH (21:00)
[2022-01-11] MEDS: INSULIN LISPRO SLIDING SCALE 100 UNITS/ML VIAL SUBQ PRN (21:15)
--- NOTE | 2022-01-11 21:29 | NUR ---
BP RE CHECK - 80/50 - SCHED LASIX TIV NOT GIVEN - WILL REFER TO DR. ESPINOZA .
[2022-01-11] MEDS ORDERED: NACL 0.9% 500 ML IV ONE (21:30)
[2022-01-12] VITALS: BP 91/54
[2022-01-12] MEDS: PIPERACILLIN/TAZOBACTAM 3.375 GM in DEXTROSE 5% 50 ML IV SCH ×4 (00:30→18:06)
--- NOTE | 2022-01-12 00:35 | NUR ---
BP RE CHECK 84/37 , AROUSABLE , HR 79 , ON TELE MONITOR , LOW BP INSPITE OF NSS 500CC BOLUS 2 HRS AGO , EMAR REVIEWED GOT LASIX TIV , LANOXIN / TAB , AND XANAX / TAB THIS AM , PT SLEEPING BUT AROUSABLE , BUT POOR ORAL INTAKE DUE TO SLEEPINESS - REFER TO DR. ESPINOZA - STAT - FOR CLOSELY WATCH .
--- NOTE | 2022-01-12 01:33 | NUR ---
ASKING OUR HOUSESUPERVISOR TO FIX OUT DOCTOR'S IPHONE - SLOW DELIVERING THE MESSAGES - NONA VERBALIZES UNDERSTANDING
--- NOTE | 2022-01-12 01:46 | NUR ---
BP RECHECK 97/54 , EASILY AWAKEABLE , HR 70'S TO 80'S , O2 SAT 98 % - WILL CONT. TO MONITOR . AAOX 2TO 3 .
--- NOTE | 2022-01-12 02:16 | NUR ---
BP RE CHECK 92/51 , BP MEAN 65 , FULLY AWAKE . WILL CONT. TO MONITOR , HR 74 .
[2022-01-12 04:00] VITALS: BP 95/54
--- NOTE | 2022-01-12 04:00 | NUR ---
rounds , no s/sx of acute distress noted , will cont. to monitor
[2022-01-12] MEDS: NACL 0.9% 1,000 ML IV SCH (05:00)
[2022-01-12] MEDS: methylPREDNISolone SS 40 MG/ML VIAL IVP SCH ×3 (05:03→21:08)
--- NOTE | 2022-01-12 06:00 | NUR ---
fully awake , bp 106/62 - call light within reach .
[2022-01-12 06:09] LABS: BASOPHILS % (AUTO) 0.1 % (0.0-2.0); HEMATOCRIT 33.7 % (36-48); LYMPHOCYTES # (AUTO) 0.2 K/uL (2.5-16.5); LYMPHOCYTES % (AUTO) 3.6 % (20.5-51.1); MEAN CORPUSCULAR HEMOGLOBIN 31 pg (27-31); MEAN CORPUSCULAR HGB CONC 33 g/dL (33-37); MEAN CORPUSCULAR VOLUME 93.7 fL (80-94); MONOCYTES # (AUTO) 0.1 K/uL (0.8-1.0); MONOCYTES % (AUTO) 1.4 % (1.7-9.3); NEUTROPHILS # (AUTO) 6.1 K/uL (1.8-7.7); NEUTROPHILS % (AUTO) 94.9 % (42.2-75.2); PLATELET COUNT (AUTO) 151 K/uL (140-450); RED CELL DISTRIBUTION WIDTH 19.2 % (11.6-13.7); WHITE BLOOD COUNT (AUTO) 6.4 K/uL (4.8-10.8)
[2022-01-12 06:18] LABS: CARBON DIOXIDE 27.3 mmol/L (21-32); CHLORIDE 110 mmol/L (98-107); GLUCOSE 229 mg/dL (74-106); POTASSIUM 4.3 mmol/L (3.5-5.1); SODIUM SERUM 145 mmol/L (136-145); UREA NITROGEN, BLOOD 26 mg/dL (7-18)
[2022-01-12] MEDS: BLOOD GLUCOSE MONITORING 1 DEV DEV FS SCH ×4 (06:23→21:07)
[2022-01-12] MEDS: INSULIN LISPRO SLIDING SCALE 100 UNITS/ML VIAL SUBQ PRN ×3 (06:23→18:07)
[2022-01-12] MEDS: MIDODRINE 5 MG TAB PO SCH ×3 (06:50→18:07)
--- NOTE | 2022-01-12 07:35 | NUR ---
endorsed pt for cont. of care .
--- NOTE | 2022-01-12 07:36 | NUR ---
RECEIVED REPORT FROM OUTPATIENT ADMITTING CLERK NURSE. PATIENT LYING DOWN IN BED SLEEPING, AROUSBLE BY VOICE. NO DISTRESS NOTED. ON O2 6L/MIN VIA NC AT 100% O2 SAT. SKIN INTACT. ROMEO PICC LINE NOTED, INTACT, PATENT. REVIEWED PLAN OF CARE WITH PATIENT. VERBALIZED UNDERSTANDING. SAFETY MEASURES IN PLACE, CALL LIGHT WITHIN REACH. WILL CONTINUE TO MONITOR.
[2022-01-12 08:00] VITALS: BP 117/66
[2022-01-12] MEDS: ALBUTEROL SULFATE/IPRATROPIU 3 ML SOL IH SCH ×3 (08:10→20:18)
[2022-01-12] MEDS: FUROSEMIDE 20 MG/2 ML VIAL IVP SCH ×2 (08:50→21:08)
[2022-01-12] MEDS: DIGOXIN 0.25 MG TAB PO SCH (08:51)
[2022-01-12] MEDS: ALPRAZolam 0.25 MG TAB PO PRN ×2 (08:54→21:09)
--- NOTE | 2022-01-12 09:04 | NUR ---
SCHEDULED MEDICATIONS DUE GIVEN. WILL CONTINUE TO MONITOR.
--- NOTE | 2022-01-12 09:30 | NUR ---
RECEIVED CALL Stevo SANCHEZ RN; DESCENDING SATURATION TO 88% ON SUPPLEMENTAL OXYGEN AT 2 LPM VIA NC; RN INCREASED FIO2 TO 4 LPM
[2022-01-12 12:00] VITALS: BP 93/63
[2022-01-12] MEDS: CHLORHEXADINE GLUC 2% CLOTH TP SCH (13:08)
--- NOTE | 2022-01-12 13:20 | NUR ---
SCHEDULED MEDICATIONS DUE GIVEN. WILL CONTINUE TO MONITOR.
--- NOTE | 2022-01-12 14:05 | NUR ---
SATURATION 94%-95% ON SUPPLEMENTAL OXYGEN AT 4 LPM VIA NC POST HHN THERAPY TITRATED FIO2 TO 3 LPM MANAGER FITNESS TO INFORM RICKY
--- NOTE | 2022-01-12 14:12 | NUR ---
ON OR ABOUT THIS TIME DR. HEVER FANG ROUNDING; REVIEWED PULMONARY STATUS OF RALES RIGHT SIDE DIMINISHED LEFT SIDE; OXYGEN DEVICE USAGE PAST TWO DAYS (IE: VTM,HFNC,BUBBLE NC) WITH SATURATION READINGS FOREMENTIONED MD STATES "AGGRESSIVE OXYGEN WEANING" VORBO: KEEP SATURATION GREATER THAN 88%
--- NOTE | 2022-01-12 14:20 | NUR ---
TOUCH UP WORKER TO INFORM GINO/LEIGHANN OF CONSTANCE OF DR. HEVER FANG "KEEP OXYGEN SATURATION GREATER THAN 88%"
--- NOTE | 2022-01-12 15:40 | NUR ---
01/12/22 RD FOLLOW UP COMPLETED PLEASE REFER TO NUTRITION ASSESSMENT UNDER CARE ACTIVITY FOR ESTIMATED NUTRITIONAL NEEDS. 1. RECOMMEND CARDIAC+CCHO 60GM DIET TOLERATED 2. RECOMMEND GLUCERNA BID TO OPTIMIZE NUTRITIONAL NEEDS 3. MONITOR PO INTAKE AND WEIGHT 4. RD TO FOLLOW-UP 7 DAYS, LOW RISK TOLU DAY, RD
[2022-01-12 16:00] VITALS: BP 104/52
--- NOTE | 2022-01-12 18:07 | NUR ---
SCHEDULED MEDICATIONS DUE GIVEN. WILL CONTINUE TO MONITOR.
--- NOTE | 2022-01-12 19:29 | NUR ---
RECEIVED REPORT FROM DAY SHIFT NURSE FOR CONTINUITY OF CARE. PATIENT LYING DOWN IN BED SLEEPING, AROUSBLE BY VOICE. NO DISTRESS NOTED. ON O2 4L VIA NC AT 94 O2 SAT. SKIN INTACT. ROMEO PICC LINE,SL AND LHAND G24 SL. PATENT AND INTACT. ALL SAFETY MEASURES IN PLACE, CALL LIGHT WITHIN REACH. WILL CONTINUE TO MONITOR.
--- NOTE | 2022-01-12 19:30 | NUR ---
GAVE REPORT TO EVENT ORGANIZER NURSE FOR CONTINUITY OF CARE. PATIENT IN STABLE CONDITION.
[2022-01-12 20:00] VITALS: BP 111/58
[2022-01-12] MEDS: MELATONIN 3 MG TAB PO SCH (21:09)
--- NOTE | 2022-01-12 21:30 | NUR ---
SCHEDULED MEDICATIONS DUE GIVEN. WILL CONTINUE TO MONITOR.
[2022-01-13] VITALS: BP 132/60
[2022-01-13] MEDS: PIPERACILLIN/TAZOBACTAM 3.375 GM in DEXTROSE 5% 50 ML IV SCH ×3 (00:30→12:32)
--- NOTE | 2022-01-13 01:55 | NUR ---
PT ASLEEP. NO S/SX OF DISTRESS NOTED. BREATHING EVEN AND UNLABORED, ON 4L O2 VIA NC. O2 SAT AT 94%. ALL PRECAUTIONS IN PLACE. CALL LIGHT WITHIN REACH. WILL CONTINUE TO MONITOR.
[2022-01-13 04:00] VITALS: BP 149/53
[2022-01-13] MEDS: methylPREDNISolone SS 40 MG/ML VIAL IVP SCH ×2 (05:21→14:03)
[2022-01-13 06:34] LABS: HEMATOCRIT 31.6 % (36-48); HEMOGLOBIN 10.3 g/dL (12.0-16.0); LYMPHOCYTES # (AUTO) 0.2 K/uL (2.5-16.5); LYMPHOCYTES % (AUTO) 2.2 % (20.5-51.1); MEAN CORPUSCULAR HEMOGLOBIN 30 pg (27-31); MEAN CORPUSCULAR HGB CONC 33 g/dL (33-37); MEAN CORPUSCULAR VOLUME 92.7 fL (80-94); MONOCYTES # (AUTO) 0.2 K/uL (0.8-1.0); MONOCYTES % (AUTO) 2.2 % (1.7-9.3); NEUTROPHILS # (AUTO) 7.6 K/uL (1.8-7.7); NEUTROPHILS % (AUTO) 95.6 % (42.2-75.2); PLATELET COUNT (AUTO) 159 K/uL (140-450); RED BLOOD CELL COUNT(AUTO) 3.41 MIL/uL (4.20-5.40); RED CELL DISTRIBUTION WIDTH 19.4 % (11.6-13.7)
[2022-01-13] MEDS: MIDODRINE 5 MG TAB PO SCH ×2 (06:43→14:02)
[2022-01-13] MEDS: INSULIN LISPRO SLIDING SCALE 100 UNITS/ML VIAL SUBQ PRN ×2 (06:44→12:33)
[2022-01-13] MEDS: BLOOD GLUCOSE MONITORING 1 DEV DEV FS SCH ×3 (06:44→16:30)
--- NOTE | 2022-01-13 06:52 | NUR ---
PT IS STABLE. NO ACUTE EVENTS THROUGHOUT THE NIGHT. BREATHING EVEN AND UNLABORED, O2 SAT AT 93% on 4lnc. S/SX OF DISTRESS AT THIS TIME. NO COMPLAINS OF PAIN. ALL PRECAUTIONS IN PLACE. CALL LIGHT WITHIN REACH. WILL ENDORSE TO AM SHIFT NURSE.
[2022-01-13 06:55] LABS: ANION GAP 14.1 (8-16); CARBON DIOXIDE 26.7 mmol/L (21-32); CHLORIDE 106 mmol/L (98-107); CREATININE 0.9 mg/dL (0.6-1.3); GLUCOSE 148 mg/dL (74-106); POTASSIUM 3.8 mmol/L (3.5-5.1); SODIUM SERUM 143 mmol/L (136-145); UREA NITROGEN, BLOOD 23 mg/dL (7-18)
[2022-01-13] MEDS: ALBUTEROL SULFATE/IPRATROPIU 3 ML SOL IH SCH ×2 (07:00→12:31)
[2022-01-13 08:00] VITALS: BP 129/71
--- NOTE | 2022-01-13 08:00 | NUR ---
RECEIVED REPORT FROM CONTACT MANAGER FOR CONTINUITY OF CARE. PATIENT IS ALERT ORIENTED X4, NOT IN DISTRESS NOTED. ON 3L NC, SATURATION 91%. DENIES PAIN, WITH MAURICE CATHETER DRAINING TO YELLOWISH CLEAR OUTPUT. ON MONITOR SHOWS CONTROLLED A.FIB. WITH ROMEO PICC LINE AND LEFT HAND G 24 IV DRY AND INTACT. CALL LIGHT WITHIN REACH, NEEDS ATTENDED. WILL CONTINUE TO MONITOR.
[2022-01-13] MEDS: FUROSEMIDE 20 MG/2 ML VIAL IVP SCH (08:34)
[2022-01-13] MEDS: DIGOXIN 0.25 MG TAB PO SCH (08:35)
--- NOTE | 2022-01-13 09:00 | NUR ---
ALL SCHEDULE MEDICATION GIVEN AND TOLERATED WELL.
[2022-01-13 12:00] VITALS: BP 106/53
[2022-01-13] MEDS ORDERED: ALPR0.2518 PO (12:48)
[2022-01-13] MEDS ORDERED: DIGO-81 PO (12:48)
[2022-01-13] MEDS ORDERED: PRED10TA6 PO (12:48)
[2022-01-13] MEDS ORDERED: LEVO-481 PO (12:48)
[2022-01-13] MEDS: ALPRAZolam 0.25 MG TAB PO PRN (14:02)
[2022-01-13] MEDS: CHLORHEXADINE GLUC 2% CLOTH TP SCH (14:03)
--- NOTE | 2022-01-13 15:24 | NUR ---
DISCHARGE PLANNING: TRANSPORTATION WAS ARRANGED WITH [employer] AT [phone] THROUGH [facility]. PER [facility], IT WILL BE A 3 HOUR WINDOW AND [facility] [employer] WILL BE AT 1830. PROVIDED [facility] WITH UNIT'S PHONE NUMBER.
[2022-01-13 16:00] VITALS: BP 97/61
--- NOTE | 2022-01-13 16:45 | NUR ---
REPORT GIVEN TO LINCOLN BEAVER AT [facility] RM 18. NOTIFIED FAMILY AND LEFT MESSAGE. PICC LINE REMOVED, HEART MONITOR REMOVED. DC INSTRUCTION GIVEN AND VERBALIZED UNDERSTANDING.
--- NOTE | 2022-01-13 18:00 | NUR ---
TRANSPORTATION HERE TO DISEASE EDUCATION SPECIALIST PATIENT, ALERT AWAKE ORIENTED, NOT IN ANY DISTRESS. IN STABLE CONDITION.
== END 2022-01-13 18:00 | DRG 871 ==
LOC: MED 16:15 → MTU 20:09
PROVIDERS: ADMIT Family Medicine; ATTEND Family Medicine
PROC: 02HV33Z Insertion of Infusion Device into Superior Vena Cava, Percutaneous Approach (ICD-10-PCS; principal; 2022-01-11)
PROC: B548ZZA Ultrasonography of Superior Vena Cava, Guidance (ICD-10-PCS; 2022-01-11)
DX: A41.9 Sepsis, unspecified organism (principal); J18.9 Pneumonia, unspecified organism; J96.21 Acute and chronic respiratory failure with hypoxia; I48.20 Chronic atrial fibrillation, unspecified; E44.1 Mild protein-calorie malnutrition; Z68.1 Body mass index [BMI] 19.9 or less, adult; J44.1 Chronic obstructive pulmonary disease with (acute) exacerbation; J44.0 Chronic obstructive pulmonary disease with (acute) lower respiratory infection; N39.0 Urinary tract infection, site not specified; I50.9 Heart failure, unspecified; K74.00 Hepatic fibrosis, unspecified; E87.6 Hypokalemia; I11.0 Hypertensive heart disease with heart failure; Z20.822 Contact with and (suspected) exposure to COVID-19; Z79.82 Long term (current) use of aspirin; Z79.899 Other long term (current) drug therapy; Z79.1 Long term (current) use of non-steroidal anti-inflammatories (NSAID); Z79.01 Long term (current) use of anticoagulants
CPT/HCPCS: 36415; 71045; 80048; 80053; 81001; 82948; 83605; 83735; 83880; 84484; 85025; 85610; 85730; 87040; 87081; 87086; 93005; 94640; 97112; 97116; 97163-GP; 97530; 99285; J0456; J1940; J2543; J2920; J7060; Q0092